=== PATIENT | male | born 1960 | race Caucasian/White ===

== ENCOUNTER 2019-08-05 09:07 | Emergency (ER) | payer BC, OTHER ==
[2019-08-05 09:23] VITALS: BP 163/97; PULSE 89; TEMP 98.1; BMI 33.6
--- NOTE | 2019-08-05 10:13 | PDOC ---
History of Present Illness - General Chief Complaint: Injury Stated Complaint: FOOT PAIN/SWOLLEN Time Seen by Provider: 08/05/19 10:03 History Source: Patient Exam Limitations: No Limitations - History of Present Illness Initial Comments: 08/05/19 10:09 58 year old male with medical history of HTN, surgical history of iguinal hernia repair presents for pain to left ankle since Monday. Patient states he recalled stepping on a rock at work Monday and states Monday he started to feel pain with weight bearing and walking. Denies numbness or tingling in toes. Occurred: reports: other (3 days ago) Severity: reports: moderate Pain Location: reports: lower extremity Method of Injury: Yes: unknown Modifying Factors: improves with: immobilization Loss of Consciousness: no loss of consciousness Associated Symptoms (Fall): denies symptoms Past History - Travel Traveled outside of the country in the last 30 days: No Close contact w/someone who was outside of country & ill: No - Past Medical History Allergies/Adverse Reactions: Allergies Allergy/AdvReac Type Severity Reaction Status Date / Time No Known Drug Allergies Allergy Verified 08/05/19 09:23 Home Medications: Ambulatory Orders Amlodipine Besylate [Norvasc -] 10 mg PO DAILY 07/06/12 Atorvastatin Ca [Lipitor] 20 mg PO DAILY 07/06/12 Cholecalciferol (Vitamin D3) [Vitamin D] 1,000 unit PO DAILY 07/06/12 Fluorometholone Acet 0.1% Op S [Flarex (Do Not Stock)] 1 gtt OS DAILY 07/06/12 Oxycodone HCl/Acetaminophen [Percocet 5-325 mg Tablet] 1 - 2 tab PO Q6H PRN #0 tablet 07/09/12 Meclizine HCl [Antivert -] 25 mg PO TID #21 tablet 05/27/16 Naproxen 500 mg PO BID #20 tablet. 08/05/19 Anemia: No Asthma: No Cancer: No Cardiac Disorders: No CVA: No COPD: No CHF: No Dementia: No Diabetes: No GI Disorders: No Disorders: No HTN: Yes Hypercholesterolemia: Yes Liver Disease: No Seizures: No Thyroid Disease: No - Surgical History Abdominal Surgery: No Appendectomy: No Cardiac Surgery: No Cholecystectomy: No Lung Surgery: No Neurologic Surgery: No Orthopedic Surgery: No - Immunization History Immunization Up to Date: Yes - Psycho Social/Smoking Cessation Hx Smoking History: Never smoked Have you smoked in the past 12 months: No If you are a former smoker, when did you quit?: 8YRS AGO Hx Alcohol Use: No Drug/Substance Use Hx: No Substance Use Type: Alcohol Hx Substance Use Treatment: No Trauma Specific PMHX - Complaint Specific PMHX Arthritis: No Back Injury: No Neck Injury: No Hx Sacro Iliac Joint Dysfunction: No Review of Systems - Review of Systems Able to Perform ROS?: Yes Is the patient limited Persian proficient: No Constitutional: No: Chills, Fever, Malaise, Night Sweats, Weakness, Weight Stable HEENTM: No: Ear Discharge, Nose Congestion, Throat Pain, Throat Swelling, Mouth Swelling Respiratory: No: Orthopnea, Shortness of Breath, Wheezing, Productive cough Cardiac (ROS): No: Chest Pain, Edema, Irregular Heart Rate ABD/GI: No: Nausea, Poor Appetite, Indigestion : No: Dysuria, Discharge Musculoskeletal: Yes: Joint Pain, Other (left ankle pain). No: Back Pain, Muscle Weakness Integumentary: No: Bruising, Erythema Neurological: No: Headache, Numbness Psychiatric: No: Stressors *Physical Exam - Vital Signs Last Vital Signs Temp Pulse Resp BP Pulse Ox 98.1 F 89 16 163/97 97 08/05/19 09:20 08/05/19 09:20 08/05/19 09:20 08/05/19 09:20 08/05/19 09:20 - Physical Exam General Appearance: Yes: Nourished, Appropriately Dressed HEENT: positive: TMs Normal, Pharynx Normal Neck: positive: Supple. negative: Lymphadenopathy (R), Lymphadenopathy (L) Respiratory/Chest: positive: Lungs Clear, Normal Breath Sounds Cardiovascular: positive: Regular Rhythm, Regular Rate Gastrointestinal/Abdominal: positive: Normal Bowel Sounds Musculoskeletal: positive: Normal Inspection. negative: CVA Tenderness Extremity: positive: Normal Capillary Refill Integumentary: positive: Swelling, Other (+ swelling of left lateral malleoulus , + pain when pressure added) Neurologic: positive: Fully Oriented, Alert Medical Decision Making - Medical Decision Making 08/05/19 10:14 58 year old male with medical history of HTN, surgical history of iguinal hernia repair presents for pain to left ankle since Monday. Patient states he recalled stepping on a rock at work Monday and states Monday he started to feel pain with weight bearing and walking. Imp: ankle injury Plan: xray 08/05/19 11:13 left ankle wet read negative will put follow up order for final read abhijeet wrap applied d/c home referred to ortho RICE instruction Discharge - Discharge Information Problems reviewed: Yes Clinical Impression/Diagnosis: Ankle sprain Qualifiers: Encounter type: initial encounter Involved ligament of ankle: other ligament Laterality: left Qualified Code(s): S93.492A - Sprain of other ligament of left ankle, initial encounter Condition: Good Disposition: HOME - Admission No - Additional Discharge Information Prescriptions: Naproxen 500 mg PO BID #20 tablet.dr - Follow up/Referral Referrals: [facility] MD [Staff Physician] - Call tomorrow (Call for continued pain to left ankle pain s/p twisted ankle ) CallBack Reminder: xray of ankle - Patient Discharge Instructions Patient Printed Discharge Instructions: DI for Ankle Pain Additional Instructions: Apply ice compress to left ankle for 20 minutes 3 times per day Elevate leg at rest Remove abhijeet wrap for sleep and shower May call orthopedic if pain does not resolve in 1 week for follow up appointment - Post Discharge Activity Work/Back to School Note: Back to Work
[2019-08-05] MEDS ORDERED: IBUPROFEN 600 MG TABLET (FP) PO ONE ×2 (11:25→11:29)
== END 2019-08-05 11:57 | disposition home or self-care (01) ==
LOC: SUPCPDRO 09:07 → JERFT 09:07
DX: S93.492A Sprain of other ligament of left ankle, initial encounter (principal); W22.8XXA Striking against or struck by other objects, initial encounter; Y93.89 Activity, other specified; Y92.59 Other trade areas as the place of occurrence of the external cause; Y99.0 Civilian activity done for income or pay; I10 Essential (primary) hypertension; E78.00 Pure hypercholesterolemia, unspecified
CPT/HCPCS: 73610-TC-LT-FY; 73630-TC-LT; 99281-25

== ENCOUNTER 2023-07-28 01:31 | Emergency (ER) | payer OTHER ==
[2023-07-28 01:43] VITALS: BMI 32.5
[2023-07-28] MEDS ORDERED: TRANEXAMIC ACID 1000 MG/10 ML VIAL IVPB ONE (04:18)
[2023-07-28] MEDS ORDERED: TRANEXAMIC ACID 1000 MG/10 ML VIAL ONE (04:38)
[2023-07-28] MEDS ORDERED: LIDOCAINE 1.5%-EPINEPHRINE 1:200,000/PF 30 ML VIAL IJ ONE (05:46)
[2023-07-28 05:56] VITALS: BP 121/81; PULSE 69; RESP 15
[2023-07-28 05:59] LABS: BASO % 1.1 % (0-2.0); EOS % 2.7 % (0-4.5); HEMATOCRIT 45.8 % (35.4-49); HEMOGLOBIN 15.4 GM/dL (11.7-16.9); LYMPH % 25.6 % (8-40); MCH 30.9 pg (25.7-33.7); MCHC 33.6 g/dl (32.0-35.9); MEAN CELL VOLUME 91.9 fl (80-96); MEAN PLT VOLUME 8.6 fl (7.5-11.1); NEUT % 61.6 % (42.8-82.8); PLATELET COUNT 257 10^3/uL (134-434); RBC 4.98 M/mm3 (4.00-5.60); RDW 13.8 % (11.9-15.9); WHITE BLOOD COUNT 8.1 K/mm3 (4.0-10.0)
[2023-07-28] MEDS ORDERED: LIDOCAINE 1%/EPI 1:100000 (50 ML MULTI DOSE VIAL) ONE (06:04)
[2023-07-28 06:19] LABS: POTASSIUM 4.3 mmol/L (3.5-5.1)
[2023-07-28 06:21] LABS: CALCIUM 9.5 mg/dL (8.5-10.1)
[2023-07-28 06:22] LABS: ALBUMIN 3.7 g/dl (3.4-5.0); BLOOD UREA NITROGEN 19.9 mg/dL (7-18)
[2023-07-28 06:26] LABS: BILIRUBIN,TOTAL 0.3 mg/dL (0.2-1); TOT PROT 7.7 g/dl (6.4-8.2)
[2023-07-28 06:50] LABS: INR 0.91 (0.83-1.09); PROTHROMBIN TIME (PATIENT) 10.6 SEC (9.7-13.0)
[2023-07-28 06:51] LABS: ACTIVATED PTT 36.2 SECONDS (25.2-36.5)
== END 2023-07-28 07:07 | disposition home or self-care (01) ==
LOC: JER 01:31
PROC: 3E033GC Introduction of Other Therapeutic Substance into Peripheral Vein, Percutaneous Approach (ICD-10-PCS; principal; 2023-07-28)
DX: K08.89 Other specified disorders of teeth and supporting structures (principal); K06.8 Other specified disorders of gingiva and edentulous alveolar ridge; Z20.822 Contact with and (suspected) exposure to COVID-19
CPT/HCPCS: 0241U-QW; 36415; 80053; 85025; 85610; 85730; 99284-25